=== PATIENT | male | born 1950 | race Caucasian/White ===

== ENCOUNTER 2024-12-18 01:17 | Emergency (ER) | payer MEDICARE, OTHER, SELFPAY ==
[2024-12-18 01:20] VITALS: BP 118/63
[2024-12-18 01:37] LABS: % Basophils 0.3 % (0-2); % Eosinophils 1.8 % (0-6); % Immature Granulocytes 0.2 % (0-0.5); % Lymphocytes 2.6 % (20.5-51.1); % Monocytes 5.6 % (1.7-9.3); % Neutrophils 89.5 % (42.2-75.2); Absolute Eosinophils 0.2 10^3/uL (0-0.7); Absolute Lymphocytes 0.3 10^3/uL (1.2-3.4); Absolute Monocytes 0.6 10^3/uL (0.1-0.6); Absolute Neutrophils 8.7 10^3/uL (1.4-6.5); Hematocrit 41.3 % (39.0-52.0); Hemoglobin 14.3 g/dL (13.0-18.0); Mean Corp Hgb Conc. 34.6 g/dL (33.0-37.0); Mean Corpuscular Hgb 31.1 pg (27.0-31.0); Mean Corpuscular Volume 89.8 fL (80.0-94.0); Mean Platelet Volume 9.4 fL (7.4-10.4); Nucleated Red Blood Cells % 0 % (-); Platelet Count 148 10^3/uL (130-400); Red Cell Dist. Width 12.5 % (11.5-14.5); White Blood Cell Count 9.8 10^3/uL (4.8-10.8)
[2024-12-18 01:43] VITALS: BP 148/76
[2024-12-18 01:48] VITALS: BMI 20.7
[2024-12-18 01:51] LABS: ALT (SGPT) 21 U/L (0-50); AST (SGOT) 29 U/L (17-59); Albumin 5.2 g/dl (3.5-5.0); Alkaline Phosphatase 98 U/L (38-126); Blood Urea Nitrogen 18 mg/dl (9-20); Calcium 9.8 mg/dl (8.4-10.2); Carbon Dioxide 18 mmol/L (22-30); Chloride 106 mmol/L (98-107); Estimated Creatinine Clearance 74 ml/min; Glucose 199 mg/dl (70-99); Potassium 4.5 mmol/L (3.5-5.1); Sodium 138 mmol/L (135-145); Total Bilirubin 1.6 mg/dl (0.2-1.3); Total Protein 7.5 g/dl (6.3-8.2); eGFR > 60.00
[2024-12-18] MEDS: TYLENOL 1000 MG PO (01:55)
[2024-12-18] MEDS: ZOFRAN 4 MG IV (01:55)
[2024-12-18] MEDS: NSS 1000 IV (01:55)
[2024-12-18 02:00] VITALS: BP 126/59
[2024-12-18 02:28] LABS: Lipase 119 U/L (23-300)
[2024-12-18 03:00] VITALS: BP 118/61
[2024-12-18 03:14] LABS: COVID-19 Antigen Negative (Negative)
[2024-12-18 04:00] VITALS: BP 105/54
[2024-12-18 05:00] VITALS: BP 111/56
--- NOTE | 2024-12-18 05:13 | ED.GENMED ---
History of Present Illness
General
Chief Complaint: Abdominal Symptoms
Source: patient, significant other and family
Time Seen by Provider: 12/18/24 03:35
History of Present Illness
History of Present Illness:
74-year-old male in town visiting his son presents with mild abdominal pain which now has resolved. He also had nausea and vomiting. He states that symptoms lasted for about 3 hours. Here he got Zofran and IV fluids and states he feels 100% fine.
He is able to tolerate liquids. Denies chest pain or shortness of breath. Patient is due to go back to [place] tomorrow morning.
Review of Systems
Review of Systems
Allergies reviewed?: Yes
All Other Systems: ROS reviewed and negative except as documented in HPI and ROS
Constitutional: Reports no symptoms
EENT: Reports no symptoms
Respiratory: Reports no symptoms
Cardiac: Reports no symptoms
ABD/GI: Reports abdominal pain, nausea and vomiting
: Reports no symptoms
Musculoskeletal: Reports no symptoms
Skin: Reports no symptoms
Neurological: Reports no symptoms
Endocrine: Reports no symptoms
Hematologic/Lymphatic: Reports no symptoms
Psychiatric: Reports no symptoms
Phy Exam
General Physical Exam
General Presentation: well appearing and no apparent distress
General Skin: warm and dry
General Habitus: normal
General Mental: alert
General Hydration: appears well hydrated
ENT Exam
ENT Exam: EOMI, pharynx normal, neck supple and normocephalic
Eye Exam
Eye Exam: PERRL, cornea clear and conjunctiva normal
Cardiovascular Exam
Cardiovascular Exam: regular rate/rhythm, no edema, no murmur and normal peripheral pulses
Pulmonary Exam
Pulmonary Exam: lungs clear, no respiratory distress, no rales, no crackles, no rhonchi, no stridor, no wheezing and no cough
Gastrointestinal Exam
Gastrointestinal Exam: normal bowel sounds, non tender, soft, no organomegaly, no pulsatile mass and non distended
Neurological Exam
Neurological Exam: alert, oriented x3, no motor deficits and speech normal
Musculoskeletal Exam
Musculoskeletal Exam: full ROM and no edema
Skin Exam
Skin Exam: normal color, warm/dry, no rash and no petechia
Psychiatric Exam
Psychiatric Exam: normal mood/affect
Course
Orders/Labs/Results
Orders:
Orders
12/18/24 01:30
Complete Blood Count/With Diff Urgent
Comprehensive Metabolic Panel Urgent
Lipase Urgent
12/18/24 01:51
0.9% Sodium Chloride 1000 ml [Nss] 1,000 ml IV BOLUS
12/18/24 01:52
Acetaminophen [Tylenol] 1,000 mg PO NOW STA
Ondansetron Injectable [Zofran] 4 mg IV NOW STA
12/18/24 02:27
COVID-19 Antigen Urgent
Source: Nasal Swab
Influenza A+B Rapid Molecular Urgent
KELSIE Source: Nasal Swab
Specimen Description:
12/18/24 04:40
Influenza A+B Rapid Molecular Urgent
KELSIE Source: Nasal Swab
Specimen Description:
12/18/24 04:51
Urinalysis Reflex To Culture Urgent
Date Specimen was Collected: 12/18/24
Time Specimen was Collected: 04:47
Abnormal Lab Results
12/18/24
01:30
RBC 4.60 L 10^6/uL
(4.70-6.10)
MCH 31.1 H pg
(27.0-31.0)
Absolute Neuts (auto) 8.7 H 10^3/uL
(1.4-6.5)
Absolute Lymphs (auto) 0.3 L 10^3/uL
(1.2-3.4)
Neutrophils % 89.5 H %
(42.2-75.2)
Lymphocytes % 2.6 L %
(20.5-51.1)
Carbon Dioxide 18 L mmol/L
(22-30)
Glucose 199 H mg/dl
(70-99)
Total Bilirubin 1.6 H mg/dl
(0.2-1.3)
Albumin 5.2 H g/dl
(3.5-5.0)
12/18/24 01:30
12/18/24 01:30
Vital Signs
Initial and Last Documented VS:
Initial Vital Signs
Temp Pulse Resp BP Pulse Ox
98.5 F 76 16 118/63 98
12/18/24 01:20 12/18/24 01:20 12/18/24 01:20 12/18/24 01:20 12/18/24 01:20
Last Documented Vital Signs
Temp Pulse Resp BP Pulse Ox
99.9 F 83 14 111/56 97
12/18/24 04:00 12/18/24 05:00 12/18/24 05:00 12/18/24 05:00 12/18/24 05:00
*Critical Care Note
Total Time (30-74mins, 75-104mins- exclusive of procedures): Not Applicable
ED Attending Note
-
Portions of this chart may have been created with voice recognition software.� Occasional wrong word or��sound alike� substitutions may have occurred due to the inherent limitations of voice recognition software.
Discharge Plan
Departure
Patient Disposition: Home (Routine Discharge)
Date of Disposition: 12/18/24
Time of Disposition: 05:13
Patient with high blood pressure during this ER visit?: Yes
Discharge Problem:
Nausea & vomiting, Abdominal pain
Instructions: [place] Diet, Nausea and Vomiting, Adult (DC), Abdominal Pain
Prescriptions:
New
ondansetron 4 mg tablet,disintegrating
4 mg PO HS PRN (Reason: nausea and vomiting) Qty: 14 0RF
No Action
latanoprost 0.005 % Drops
1 drp OPHTHALMIC (EYE) QPM
atorvastatin 40 mg Tablet
80 mg PO HS
carvedilol [Coreg] 12.5 mg Tablet
6.25 mg PO BID
meclizine 12.5 mg Tablet
12.5 mg PO TID PRN (Reason: dizziness)
clopidogrel [Plavix] 75 mg Tablet
75 mg PO DAILY
omeprazole 40 mg Capsule,Delayed Release(Dr/Ec)
40 mg PO DAILY
tamsulosin 0.4 mg Capsule
0.4 mg PO HS
nitroglycerin 0.4 mg Tablet, Sublingual
0.4 mg SUBLINGUAL Q5-15M PRN (Reason: chest pain)
fluticasone propionate [Flonase] 50 mcg/actuation Jesse,Suspension
1 spray INTRANASAL DAILY PRN (Reason: allergy)
Zyrtec 10 mg Capsule
10 mg PO DAILY
gabapentin 600 mg Tablet Extended Release 24 Hr
1,200 mg PO QPM
Xarelto 20 mg Tablet
20 mg PO QPM
Referrals:
NONE,* [Family Provider] -
[facility] [Outside]
Activity Restrictions/Additional Instructions:
Your prescriptions were sent electronically to the pharmacy that you specified.
It was a pleasure meeting you and taking part in your care. We hope for your continued healing and wellness.
Please read discharge instructions in their entirety. However, they are for general education and may not describe your exact diagnosis at discharge. Information on your ER visit and medical conditions were discussed with you along with appropriate
follow up information...
If indicated, please take your medications as instructed and indicated on discharge paperwork.
Please schedule a follow up appointment as directed. Call to schedule an appointment
Please return to the emergency department with ANY change in, persisting, or worsening of symptoms. If any of your symptoms do not improve, or persist, or become more severe within 6-12 hours, please return to the emergency department for further
care.
Please return to the emergency department if you develop a headache, neck pain/stiffness, fever greater than 100.4F, chest pain, shortness of breath, persistent nausea, vomiting, slurred speech, difficulty walking, numbness/tingling, weakness, signs
of infection or any other symptoms that are worrisome to you.
If you have any questions or concerns please do not hesitate to call the Hospital at or E-mail me directly at [email or web address]
Interventions
Interventions:
*Risk Screen - Suicide Last Done: 12/18/24 01:20
*General Assessment Last Done: 12/18/24 01:20
*Neglect/Abuse Screening Last Done: 12/18/24 01:20
ED- Fall Risk Assessment Last Done: 12/18/24 02:44
*ED COVID-19 Vaccine History Last Done: 12/18/24 01:50
DP-Oiapxf-Hyizrvygql Assessment Last Done: 12/18/24 02:44
Discharge Date and Time
Print Language: DIVEHI
[2024-12-18 05:46] LABS: Urine Albumin Negative (Neg - Trace); Urine Bilirubin Negative (Negative); Urine Character Clear (Clear); Urine Color Yellow; Urine Glucose Negative (Negative); Urine Ketone Negative (Negative); Urine Leukocyte Negative (Negative); Urine Nitrite Negative (Negative); Urine Occult Blood Negative (Negative); Urine Specific Gravity 1.025 (<1.030); Urine Urobilinogen Negative (Neg - 1+)
== END 2024-12-18 05:37 | disposition home or self-care (01) ==
LOC: EMR 01:17
PROVIDERS: EMERGENCY PHYSICIAN Student in an Organized Health Care Education/Training Program
DX: R11.2 Nausea with vomiting, unspecified (principal); R10.9 Unspecified abdominal pain
CPT/HCPCS: 96374; 96361; 99284; 80053; 81003; 83690; 85025; 87502; 87811